=== PATIENT | female | born 1980 | race Asian ===

== ENCOUNTER 2016-11-06 23:38 | Outpatient (CLI) | payer BC, OTHER ==
[~2016-11-06] VITALS: Ht 170.2 cm; Wt 81.6 kg
[~2016-11-06 23:38] MED LIST: ENDOCET 5-3251 EACH PO; IBUPROFEN800 MG PO
[2016-11-07 00:08] VITALS: BP 98/62
== END 2016-11-07 00:45 | disposition home or self-care (01) ==
LOC: LDRP-OP 23:38 → 2WEST 23:39
DX: O47.03 False labor before 37 completed weeks of gestation, third trimester (principal); Z3A.29 29 weeks gestation of pregnancy; O09.523 Supervision of elderly multigravida, third trimester
CPT/HCPCS: 59025; G0378